=== PATIENT | female | born 1985 | race Two or more races ===

== ENCOUNTER 2021-08-26 06:32 | Emergency (ER) | payer MEDICAID ==
[~2021-08-26] VITALS: Ht 160 cm; Wt 77.1 kg
[2021-08-26 07:13] VITALS: BP 121/81
== END 2021-08-26 10:13 | disposition home or self-care (01) ==
LOC: ER 06:32
DX: R07.89 Other chest pain (principal); Z59.00 Homelessness unspecified
CPT/HCPCS: 71101